=== PATIENT | female | born 1950 | race Caucasian/White ===

== ENCOUNTER 2018-04-26 14:32 | Outpatient (CLI) | payer MEDICARE, BC ==
[2018-04-26 15:36] LABS: #Basophils 0.1 thou/uL (0.0-0.2); #Eosinphils 0.1 thou/uL (0.0-0.7); #Lymphocytes 3.5 thou/uL (1.20-3.40); #Monocytes 0.8 thou/uL (0.11-0.59); #Neutrophils 8.5 thou/uL (1.40-6.50); %Basophils 0.8 % (0.0-1.0); %Lymphocytes 26.8 % (21.0-51.0); %Monocytes 6.1 % (0.0-10.0); %Neutrophils 65.2 % (42.0-75.0); Hemoglobin 15.3 g/dL (12.0-16.0); Mean Corpuscular HGB CONC 33.1 g/dL (32.0-36.0); Mean Corpuscular Hemoglobin 31.7 pg (27.0-31.0); Mean Corpuscular Volume 95.8 fL (78.0-98.0); Mean Platelet Volume 7.1 fL (7.4-10.4); Platelet Count 367 thou/uL (130-400); RBC Distribution Width 13.3 % (11.5-14.5); Red Blood Cell (RBC) Count 4.81 mill/uL (4.20-5.40)
== END 2018-04-26 14:33 | disposition home or self-care (01) ==
LOC: LABBT 14:32
PROVIDERS: ATTEND Orthopaedic Surgery Hand Surgery
DX: Z01.812 Encounter for preprocedural laboratory examination (principal); D48.7 Neoplasm of uncertain behavior of other specified sites; M67.441 Ganglion, right hand
CPT/HCPCS: 85025; 85652

== ENCOUNTER → 2018-04-27 | Day surgery (SDC) | payer MEDICARE, BC ==
[2018-04-26 14:44] VITALS: BMI 26.2
[~2018-04-27] MED LIST: Albuterol Sulfate HFA (OR ONLY) ONE; Bacitracin Zinc Ointment 30 gm TUBE ONE; Betamet Acet/Betamet Na Ph 30 MG/5 ML VIAL ONE; Bupivacaine PF 0.5% 30 ML VIAL ONE; CEFAZOLIN/Water 2 GM/20 ML SYRINGE ONE; Dexamethasone 20 MG/5 ML VIAL ONE; Fentanyl 100 MCG/2 ML VIAL ONE; Ketorolac Tromethamine 30 MG/ML VIAL ONE; Lidocaine 1% PF 5 ML VIAL ONE; Ondansetron PF 4 MG/2 ML Vial ONE; PROPOFOL 200 MG/20 ML VIAL ONE
--- NOTE | 2018-04-27 11:37 | OP ---
DATE OF PROCEDURE: 04/27/2018 SURGEON: Dr. Kenny Grubbs PREOPERATIVE DIAGNOSES: 1. Right small finger ganglion. 2. Left small finger giant cell. POSTOPERATIVE FINDINGS: 1. 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 2. Right small finger Dupuytren's cord already involving the digital nerve ulnar aspect of the right small finger with a stalk connected to the distal end of the A1 apryl that was 3 cm and the cords t ip was 1 cm x 4 x 3 mm. PROCEDURES: 1. Left small finger. A. 3 mm giant cell excisional biopsy. B. Left small finger ulnar digital nerve neuroplasty. 2. Right small finger. A. Dupuytren cord excision/sub fasciectomy, palmar fasciectomy. B. Right small finger ulnar digital nerve neuroplasty. Both sites had 2 mL of Celestone placed around the nerve after the procedure. TOURNIQUET TIME: On the left was 7 minutes, on the right was 23 minutes. ESTIMATED BLOOD LOSS: 10 mL total. SPECIMEN SENT: Yes, the left giant cell tumor 3 mm and the right Dupuytren's cord as described above . DESCRIPTION OF PROCEDURE: After successful general endotracheal anesthesia, both sides prepped and d raped. Timeout was done appropriately and a tourniquet was applied, well-padded with a whole roll of 4 inch cast padding underneath the tourniquet in both mid arms. We chose the left side first, rotat ed the table appropriately. After prepping and draping and a timeout was completed. We then injecte d with 10 mL of 0.5% Marcaine metacarpophalangeal joint block level standard technique. The patient had a 1 cm incision made centered on the mass, carried through skin and subcutaneous tissue. Immedia tely the mass could be visualized, but it had a small stalk that was right over the digital nerve, so a neuroplasty was performed to separate the nerve from the mass. It was deep yellow and fibrinous l sasha, consistent with possibly giant cell tumor or a small inclusion cyst. Either way it was sent to the lab. Tourniquet was deflated. Hemostasis obtained. We closed incision with interrupted 4-0 nylon mattres s pattern and a bulky dressing was applied. We then turned our attention to the right side. The patient had an incision outlined over this mass which was at least a centimeter long in a Geovanni fashion. Exsanguinated the limb, inflated tournique t to 250 mmHg pressure and began the incision. The incision with knife was carried through skin and subcutaneous tissue until we reached the deep dermis. Wheeler blade was then made a longitudinal type approach and we identified the nerve immediately. The mass could be seen to have a separate stalk. At one point, the nerve made almost an 80 degree angle as it went into the mass. This had to be sep arated under magnification using a careful tenotomy scissors. The nerve was without damage , the mass was adherent to the deep dermis on the ulnar side, on the radial side adherent to the nerv e. We both sides, lifted the mass out which was 1 cm long, about 3 mm wide with a stalk th at went back to the interval between the A2 and A1 pulleys. We protected the nerve and removed the m ass and the stalk throughout this entire field, deflated tourniquet, obtained hemostasis and then charisse watson 3 mL of Celestone over the nerve. Closure with interrupted 4-[address] Bulky dr infante was applied and the patient left the operating room without evidence of anesthetic or operativ e complication.
--- NOTE | 2018-04-30 05:36 | PQF ---
[facility] POST DISCHARGE CLINICAL DOCUMENTATION IMPROVEMENT CLARIFICATION FORM l Todays Date: 04/30/18 l Patients Name NENA BROWN l l Admit Date 04/27/18 l Disch Date 04/27/18 Mathematics Lecturer Name Clarence Odom Email: [email or web address] ([email or web address]) Cell: [phone] Present Clinical Indicators - Signs / Symptoms Results and Location in Medical Record [ ] Documentation of: [ ] [ ] Documentation of: [ ] [ ] Documentation of: [ ] [ ] Documentation of: [ ] [ ] Risks [ ] [ ] [ ] Treatment [ ] GIANT CELL TUMOR LEFT SMALL FINGER QUERY FOR SIZE OF EXCISED MARGINS [ ] [ ] To be completed by Physician: DR. DOMINIC NEAL The documentation in this patients record requires clarification to ensure coding compliance and accuracy. Check the appropriate box and include in your discharge summary. [ ] [ ] [ ] [ ] Please check this box if this does not apply to this patient [ ] Unable to determine [ ] Other diagnosis: Review the following information and exercise your independent professional judgment in responding to the clarification. Based upon the clinical findings, risk factors, and treatment, please clarify if you are treating one of the above probable or suspected diagnoses. Physician Signature: Date Time HERNAND
== END ==
LOC: SDC 06:03
PROVIDERS: ATTEND Orthopaedic Surgery Hand Surgery
PROC: 0RBW0ZZ Excision of Right Finger Phalangeal Joint, Open Approach (ICD-10-PCS; principal; 2018-04-27)
PROC: 01N40ZZ Release Ulnar Nerve, Open Approach (ICD-10-PCS; 2018-04-27)
PROC: 0JBK0ZZ Excision of Left Hand Subcutaneous Tissue and Fascia, Open Approach (ICD-10-PCS; 2018-04-27)
DX: M67.441 Ganglion, right hand (principal); D48.7 Neoplasm of uncertain behavior of other specified sites; Z87.891 Personal history of nicotine dependence; Z79.82 Long term (current) use of aspirin; Z79.84 Long term (current) use of oral hypoglycemic drugs; Z79.899 Other long term (current) drug therapy; Z91.048 Other nonmedicinal substance allergy status
CPT/HCPCS: 88304; J0131; J0702; J1100; J1885; J2001; J2405; J2704; J3010; S0020